=== PATIENT | male | born 1975 | race African-American/Black ===

== ENCOUNTER 2018-04-07 16:11 | Emergency (ER) | payer SELFPAY ==
[2018-04-07 16:40] VITALS: BP 128/79
[2018-04-07] MEDS ORDERED: OXYCODONE-ACETAMINOPHEN 5-325 MG TABLET PO ONE (16:54)
--- NOTE | 2018-04-07 16:55 | ER Document Report ---
ED Medical Screen (RME) - General Chief Complaint: Laceration Stated Complaint: HAND INJURY Time Seen by Provider: 04/07/18 16:50 Mode of Arrival: Ambulatory Information source: Patient Notes: This is a 42-year-old man who presents to the emergency room with left hand injury. 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 His last tetanus shot was 2 years ago. - Related Data Allergies/Adverse Reactions: iodine Allergy (Verified 04/07/18 16:53) seafood Allergy (Uncoded 04/07/18 16:53) Past Medical History - Social History Chew tobacco use (# tins/day): No Frequency of alcohol use: None Drug Abuse: None Renal/ Medical History: Denies: Hx Peritoneal Dialysis Past Surgical History: Reports: Hx Orthopedic Surgery - left and right hand and left ankle surgery Physical Exam - Vital signs Vitals: Temp Pulse Resp BP Pulse Ox 98.9 F 79 12 128/79 H 99 04/07/18 16:39 04/07/18 16:39 04/07/18 16:39 04/07/18 16:39 04/07/18 16:39 Course - Vital Signs Vital signs: Temp Pulse Resp BP Pulse Ox 98.9 F 79 12 128/79 H 99 04/07/18 16:39 04/07/18 16:39 04/07/18 16:39 04/07/18 16:39 04/07/18 16:39
--- NOTE | 2018-04-07 17:18 | RADIOLOGY REPORT (SQ) ---
EXAM DESCRIPTION: HAND LEFT 3 VIEWS COMPLETED DATE/TIME: 04/07/2018 5:08 pm REASON FOR STUDY: drill bit to left hand COMPARISON: None. EXAM PARAMETERS: NUMBER OF VIEWS: Three views. TECHNIQUE: AP, lateral and oblique radiographic images acquired of the left hand. LIMITATIONS: None. FINDINGS: MINERALIZATION: Normal. BONES: No acute fracture or dislocation. There is deformity of the head of the 5th metacarpal. 5th metacarpophalangeal joint is quite irregular. JOINTS: No effusions. SOFT TISSUES: No soft tissue swelling. No foreign body. OTHER: No other significant finding. IMPRESSION: No acute abnormality is seen. There are prior posttraumatic changes involving the 5th m etacarpal in the 5th metacarpophalangeal joint. TECHNICAL DOCUMENTATION: JOB ID: [id number] [employer]- All Rights Reserved Reading location - IP/workstation name: [email or web address]
[2018-04-07] MEDS ORDERED: LIDOCAINE 1% INJ-PF (10 MG/ML) 30 ML SDV INJ ONE (17:35)
--- NOTE | 2018-04-07 17:41 | ER Document Report ---
HPI - HPI Time Seen by Provider: 04/07/18 16:50 Pain Level: 5 Notes: Patient is a 42-year-old male no significant past medical history who presents to the emergency department complaining of an injury to his left lateral dorsal hand prior to arrival. Patient states that he is working with a drill when the drill bit broke and he caught part of his hand. Patient states that it did not go away through his hand. His tetanus was last updated 2 years ago. Is able move his fingers without any difficulties. He has no other concerns or complaints. No associated numbness or tingling. Denies any headache, fever, neck pain, URI, sore throat, chest pain, palpitations, syncope, cough, shortness of breath, wheeze, dyspnea, abdominal pain, nausea/vomiting/diarrhea, urinary retention, dysuria, hematuria, saddle anesthesia, muscle paralysis/weakness, or rash. - ROS Systems Reviewed and Negative: Yes All other systems reviewed and negative - DERM Skin Color: Normal Past Medical History - General Information source: Patient - Social History Smoking Status: Current Every Day Smoker Chew tobacco use (# tins/day): No Frequency of alcohol use: None Drug Abuse: None Family History: Reviewed & Not Pertinent Patient has suicidal ideation: No Patient has homicidal ideation: No Renal/ Medical History: Denies: Hx Peritoneal Dialysis Past Surgical History: Reports: Hx Orthopedic Surgery - left and right hand and left ankle surgery Vertical Provider Document - CONSTITUTIONAL Agree With Documented VS: Yes Notes: PHYSICAL EXAMINATION: GENERAL: Well-appearing, well-nourished and in no acute distress. LUNGS: Breath sounds clear to auscultation bilaterally and equal. No wheezes rales or rhonchi. HEART: Regular rate and rhythm without murmurs, rubs, gallops. Musculoskeletal: Left hand: FROM to passive/active. Strength 5+/5. N/V intact distal. No bony tenderness. Extremities: No cyanosis, clubbing, or edema b/l. Peripheral pulses 2+. Capillary refill less than 3 seconds. NEUROLOGICAL: Normal speech, normal gait. Normal sensory, motor exams PSYCH: Normal mood, normal affect. SKIN: Left dorsal lateral hand: there is a round avulsion-type superficial skin injury noted approx 1.5cm diameter. There is another irregular 0.6cm superficial laceration near the larger avulsion injury. No obvious foreign body. Course - Re-evaluation Re-evalutation: 04/07/18 17:40 Dr. Adames also eval'd the patient. We will perform loose closure to the larger wound and send home with antibiotics. Pt in agreemet with this plan. 04/07/18 18:04 Patient is an afebrile, well-hydrated, 42-year-old male who presents to the ED with a laceration/avulsion to his left dorsal hand. Vitals are acceptable without significant tachycardia, tachypnea, or hypoxia. PE is otherwise unremarkable. X-ray was unremarkable for acute pathology. Wound was thoroughly irrigated and cleansed without any obvious foreign body appreciated. Wound edges were approximated appropriately with a total of 3 simple interrupted sutures; 2 in the larger and one in the smaller. Patient tolerated procedure well without any complications. Most of the healing will be done by secondary intent. Wound dressing was placed and wound instructions thoroughly reviewed with the patient. His tetanus is up-to-date. I will send him home with a prescription for Keflex. Low suspicion for any retained foreign body, infection, fracture, tendon/ligament tear, or other systemic emergent condition at this time. Patient aware that condition can change and he needs to monitor symptoms closely. Recheck with your PCM in 2-3 days. Sutures will need removed in 10 days. Return to the ED with any worsening/concerning symptoms otherwise as reviewed. Consider consult with orthopedics as well. Patient is in agreement. - Vital Signs Vital signs: Temp Pulse Resp BP Pulse Ox 98.9 F 79 12 128/79 H 99 04/07/18 16:39 04/07/18 16:39 04/07/18 16:39 04/07/18 16:39 04/07/18 16:39 Procedures - Laceration/Wound Repair Left Posterior Hand Time completed: 18:00 Wound length (cm): 1.5 - and another 0.6cm Wound's Depth, Shape: Superficial, Irregular, Other - avulsion Laceration pre-procedure: Sterile PPE donned, Other - chlorhexadine/saline Anesthetic type: 1% Lidocaine Volume Anesthetic (mLs): 6 Wound explored: Clean, No foreign body removed Irrigated w/ Saline (mLs): 120 Wound Debrided: none Wound Repaired With: Sutures Suture Size/Type: 4:0, Nylon Number of Sutures: 3 Layer Closure?: No Post-procedure wound care: Sterile dressing applied Post-procedure NV exam normal: Yes Complications: No Discharge - Discharge Clinical Impression: Avulsion of skin of left hand Qualifiers: Encounter type: initial encounter Qualified Code(s): S61.402A - Unspecified open wound of left hand, initial encounter Condition: Stable Disposition: HOME, SELF-CARE Instructions: Antibiotic Ointment Protection ([facility]), Laceration Care ([facility]), Prophylactic Antibiotic ([facility]), Soap Cleansing ([facility]) Additional Instructions: Do not shower or bathe for 24 hours. After 24 hours you may shower but no submersion of the wound under water. Keep the original dressing on the wound for 24 hours unless the drainage soaks through. Change the dressing daily thereafter and keep the knots of the suture material clean from any dried discharge. You may leave the wound open to the air once there is no more discharge. Return to the ED and/or your PCM in 2-3 days for a recheck. Monitor for any signs of worsening pain or redness, purulent drainage, streaks, and/or fever. Return to the ED if noticing any of the above symptoms or as needed. Take medications as directed. Your sutures will need to be removed in 10 days. Prescriptions: Cephalexin Monohydrate [Keflex 500 mg Capsule] 500 mg PO TID #30 capsule Forms: Elevated Blood Pressure, Smoking Cessation Education Referrals: [facility] [Provider Group] - Follow up as needed
== END 2018-04-07 18:54 | disposition home or self-care (01) ==
LOC: ER 16:11
DX: S61.402A Unspecified open wound of left hand, initial encounter (principal); W29.8XXA Contact with other powered hand tools and household machinery, initial encounter; F17.200 Nicotine dependence, unspecified, uncomplicated
CPT/HCPCS: 99283; 73130; 12001; J3490